=== PATIENT | male | born 1965 ===

== ENCOUNTER 2017-11-17 18:39 | Observation (INO) | payer OTHER ==
--- NOTE | 2017-11-17 20:06 | RAD ---
HISTORY: Chest pain COMPARISONS: None VIEWS: 2: frontal portable view of the chest at 7:21 PM FINDINGS: LINES AND TUBES: None. CARDIOMEDIASTINAL SILHOUETTE: The cardiomediastinal silhouette is normal for portable technique. PLEURA: The costophrenic angles are sharp. No pleural abnormalities are noted. LUNG PARENCHYMA: The lungs are clear. ABDOMEN: The upper abdomen is clear. There is no subphrenic gas. BONES AND SOFT TISSUES: No bone or soft tissue abnormalities are noted. IMPRESSION: NO ACTIVE CARDIOPULMONARY DISEASE.
[2017-11-17 20:12] LABS: ABS Basophils 0.1 10^3/ul (0-0.2); ABS Eosinophils 0.1 10^3/ul (0-0.6); ABS Lymphocytes 1.7 10^3/ul (1.0-4.8); ABS Monocytes 0.7 10^3/ul (0-0.8); ABS Neutrophils 6.9 10^3/ul (1.5-7.7); ABS Nucleated RBC 0 10^3/ul; Eosinophil % 0.9 % (0-6); Hematocrit 39 % (42-52); Hemoglobin 13.5 g/dl (14.0-18.0); Lymphocyte % 17.8 % (25-47); Mean Corpuscular HGB Conc 35 g/dl (31-36); Mean Corpuscular Hemoglobin 32 pg (27-31); Mean Corpuscular Volume 92 fL (80-94); Mean Platelet Volume 7.5 um3 (7.4-10.4); Nucleated Red Blood Cells % 0; Platelet Count 248 10^3/ul (150-450); Red Blood Count 4.24 10^6/ul (4.0-5.4); Red Cell Distribution Width 13 % (10.5-15); White Blood Count 9.3 10^3/ul (3.5-10.8)
[2017-11-17 20:22] LABS: INR 0.92 (0.77-1.02)
[2017-11-17 20:33] LABS: EGFR Non-African American 81.3 (>60)
--- NOTE | 2017-11-17 21:09 | ED ---
Malachi Danielle Nikita, scribed for Akira Sanchez MD on 11/17/17 at 1938 . HPI Chest Pain - HPI Summary HPI Summary: This patient is a 52 year old M BIBA to ED with a chief complaint of CP since 1700 today. The patient was sitting down during onset. The CC is described as radiating down the L arm with numbness/tingling down to his fingers. The patient rates the pain 3/10 in severity. Symptoms aggravated by nothing. CP and numbness/tingling alleviated slightly by 324 mg ASA and total x5 nitro tabs on arrival. Patient reports nausea and dizziness. Patient denies diaphoresis. Patient reports similar episode 1 year ago and when he had [place] in 2005 (takes Plavix and ASA, does not remember if he had an angiogram done then). Patient also had a stroke in 2016 and since then he has had L-sided weakness and a loop recorder put since 2016. Patient has syncopal episodes as well. - History of Current Complaint Chief Complaint: EDChestPainROMI Time Seen by Provider: 11/17/17 19:23 Hx Obtained From: Patient Onset/Duration: Started Hours Ago, Still Present Timing: Constant, Lasting Hours Initial Severity: Mild Current Severity: Mild Pain Intensity: 3 Pain Scale Used: 0-10 Numeric Chest Pain Radiates: Yes Chest Pain Radiates To:: Arm - L arm and down to the fingers Aggravating Factor(s): Nothing Alleviating Factor(s): Other: - CP and numbness/tingling alleviated slightly by 324 mg ASA and total x5 nitro tabs on arrival. Associated Signs and Symptoms: Positive: Other: - Patient reports nausea and dizziness. Patient denies diaphoresis. - Allergy/Home Medications Allergies/Adverse Reactions: Allergies Allergy/AdvReac Type Severity Reaction Status Date / Time ibuprofen Allergy Swelling Verified 11/17/17 18:56 Of Face,Lips,& Throat naproxen [From Naprosyn] Allergy Swelling Verified 11/17/17 18:56 Of Face,Lips,& Throat Home Medications: Home Medications Aspirin EC TAB* [Ecotrin EC Low Dose 81 MG*] 81 mg PO DAILY 11/17/17 [History Confirmed 11/17/17] Atorvastatin* [Lipitor*] 40 mg PO DAILY 11/17/17 [History Confirmed 11/17/17] Clopidogrel TAB* [Plavix TAB*] 75 mg PO DAILY 11/17/17 [History Confirmed ] Lisinopril TAB* [Prinivil TAB*] 2.5 mg PO DAILY 11/17/17 [History Confirmed 11/01] Metoprolol Tartrate TAB* [Lopressor TAB*] 12.5 mg PO BID 11/17/17 [History Confirmed 11/17/17] Triamterene/HCTZ 37.5-25 MG* [Dyazide CAP*] 1 cap PO DAILY 11/17/17 [History Confirmed 11/17/17] carBAMazepine TAB(*) [TEGretol TAB(*)] 200 mg PO BID 11/17/17 [History Confirmed 11/17/17] PMH/Surg Hx/FS Hx/Imm Hx Cardiovascular History: Reports: Hx Hypertension, Hx Myocardial Infarction Respiratory History: Reports: Hx Asthma Neurological History: Reports: Hx CVA, Hx Seizures Infectious Disease History: No Infectious Disease History: Denies: Traveled Outside the [place] in Last 30 Days - Family History Known Family History: Positive: Cardiac Disease - father - [place], Diabetes - mother , Other Family History: sister - tumor - Social History Alcohol Use: None Substance Use Type: Reports: None Smoking Status (MU): Former Smoker Review of Systems Negative: Skin Diaphoresis Positive: Chest Pain - radiates down the L arm and to the fingers Positive: Nausea Neurological: Other - dizziness, numbness/tingling in the L arm All Other Systems Reviewed And Are Negative: Yes Physical Exam - Summary Physical Exam Summary: VITAL SIGNS: Reviewed. GENERAL: ~Patient is a well-developed and nourished MALE who is lying comfortable in the stretcher. Patient is not in any acute respiratory distress. HEAD AND FACE: No signs of trauma. No ecchymosis, hematomas or skull depressions. No sinus tenderness. EYES: PERRLA, EOMI x 2, No injected conjunctiva, no nystagmus. EARS: Hearing grossly intact. Ear canals and tympanic membranes are within normal limits. MOUTH: Oropharynx within normal limits. NECK: Supple, trachea is midline, no adenopathy, no JVD, no carotid bruit, no c- spine tenderness, neck with full ROM. CHEST: Symmetric, no tenderness at palpation LUNGS: Clear to auscultation bilaterally. No wheezing or crackles. CVS: Regular rate and rhythm, S1 and S2 present, no murmurs or gallops appreciated. ABDOMEN: Soft, non-tender. Belly is distended. No rebound, no guarding, and no masses palpated. Bowel sounds are normal. EXTREMITIES: no edema, no cyanosis or clubbing. Left-sided hemiparesis and a brace on left lower extremity. NEURO: Alert and oriented x 3. No acute neurological deficits. Speech is normal and follows commands. SKIN: Dry and warm Triage Information Reviewed: Yes Vital Signs On Initial Exam: Initial Vitals Resp 23 11/17/17 18:48 Vital Signs Reviewed: Yes Diagnostics - Vital Signs Vital Signs Temp Pulse Resp BP Pulse Ox 11/17/17 19:00 65 9 96 11/17/17 18:53 98.6 F 62 13 114/65 98 11/17/17 18:48 23 - Laboratory Result Diagrams: 11/17/17 20:06 11/17/17 20:06 Lab Statement: Any lab studies that have been ordered have been reviewed, and results considered in the medical decision making process. - Radiology CXR Radiology Interpretation Completed By: Radiologist - NO ACTIVE CARDIOPULMONARY DISEASE. ED physician has reviewed this imaging report. - EKG 1845 Cardiac Rate: NL - 65 bpm EKG Rhythm: Sinus Rhythm - Normal axis. No ischemic changes. non-specific T wave changes in inferior leads. Chest Pain Course/Dx - Course Assessment/Plan: This patient is a 52 year old M BIBA to ED with a chief complaint of CP since 1700 today. CXR reveals NO ACTIVE CARDIOPULMONARY DISEASE. EKG reveals NSR at 65 bpm, Normal axis, No ischemic changes and non- specific T wave changes in inferior leads. Consulted Dr. Anderson at 2106 who accepts the patient for admission. The patient will be admitted. The patient is agreeable with this plan. - Chest Pain Differential Diagnosis/HQI/PQRI: Other: - chest pain - Diagnoses Provider Diagnoses: Chest pain - Provider Notifications Discussed Care Of Patient With: Geneva Anderson Time Discussed With Above Provider: 21:04 Instructed by Provider To: Other - Consulted Dr. Anderson who accepts the patient for admission. Discharge - Sign-Out/Discharge Documenting (check all that apply): Discharge/Admit/Transfer - Discharge Plan Condition: Stable Disposition: ADMITTED TO [facility] documentation as recorded by the Malachi irwin Nikita accurately reflects the service I personally performed and the decisions made by me, Akira Sanchez MD.
[2017-11-18] MEDS: Heparin VIAL(*) 5000 UNITS/ML VIAL (FIVE THOUSAND) SUBCUT SCH ×4 (00:15→21:22)
[2017-11-18] MEDS ORDERED: Nitroglycerin TAB 0.4 MG* 0.4 MG TAB SL PRN (02:32)
[2017-11-18] MEDS: Acetaminophen TAB* 325 MG PO PRN ×4 (02:42→23:34)
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
[2017-11-18] MEDS: Lisinopril TAB* 5 MG PO SCH (09:04)
[2017-11-18] MEDS: Clopidogrel TAB* 75 MG PO SCH (09:04)
[2017-11-18] MEDS: Triamterene/HCTZ 37.5-25 MG* CAP PO SCH (09:04)
[2017-11-18] MEDS: carBAMazepine TAB(*) 200 MG PO SCH ×2 (09:04→21:22)
[2017-11-18] MEDS: Atorvastatin* 40 MG TAB PO SCH (09:04)
[2017-11-18] MEDS: Aspirin EC TAB* 81 MG TAB.EC PO SCH (09:05)
[2017-11-18] MEDS: Metoprolol Tartrate TAB* 25 MG PO SCH ×2 (09:05→21:22)
--- NOTE | 2017-11-18 18:18 | PN ---
Subjective Date of Service: 11/18/17 Interval History: Patient was seen and examined earlier today. Reports feeling better overall. Still has intermittent mild chest discomfort, only needed one dose of Nitro last night. Denies any palpitations, weakness or SOB. Family History: Unchanged from Admission Social History: Unchanged from Admission Past Medical History: Unchanged from Admission Objective Active Medications: Acetaminophen (Tylenol Tab*) 650 mg PO Q4H PRN PRN Reason: PAIN Last Admin: 11/18/17 13:32 Dose: 650 mg Aspirin (Aspirin Ec Tab*) 81 mg PO DAILY [facility] Last Admin: 11/18/17 09:05 Dose: 81 mg Atorvastatin Calcium (Lipitor*) 40 mg PO DAILY [facility] Last Admin: 11/18/17 09:04 Dose: 40 mg Carbamazepine (Tegretol Tab(*)) 200 mg PO BID [facility] Last Admin: 11/18/17 09:04 Dose: 200 mg Clopidogrel Bisulfate (Plavix Tab*) 75 mg PO DAILY [facility] Last Admin: 11/18/17 09:04 Dose: 75 mg Heparin Sodium (Porcine) (Heparin Vial(*)) 5,000 units SUBCUT Q8HR [facility] Last Admin: 11/18/17 13:32 Dose: 5,000 units Lisinopril (Prinivil Tab*) 2.5 mg PO DAILY [facility] Last Admin: 11/18/17 09:04 Dose: 2.5 mg Metoprolol Tartrate (Lopressor Tab*) 12.5 mg PO BID [facility] Last Admin: 11/18/17 09:05 Dose: 12.5 mg Nitroglycerin (Nitroglycerin Tab 0.4 Mg*) 0.4 mg SL Q5M PRN PRN Reason: ANGINA Last Admin: 11/18/17 03:20 Dose: 0.4 mg Triamterene/HCTZ (Dyazide Cap*) 1 cap PO DAILY [facility] Last Admin: 11/18/17 09:04 Dose: 1 cap Vital Signs - 8 hr 11/18/17 11/18/17 11:45 14:56 Temperature 98.0 F 99.0 F Pulse Rate 58 65 Respiratory 16 16 Rate Blood Pressure 119/74 123/73 (mmHg) O2 Sat by Pulse 97 96 Oximetry Oxygen Devices in Use Now: Nasal Cannula Appearance: Awake and alert, laying on bed, appears comfortable and in NAD. Eyes: No Scleral Icterus, PERRLA Ears/Nose/Mouth/Throat: Clear Oropharnyx, Mucous Membranes Moist Neck: NL Appearance and Movements; NL JVP, Trachea Midline Respiratory: Symmetrical Chest Expansion and Respiratory Effort, Clear to Auscultation Cardiovascular: NL Sounds; No Murmurs; No JVD, RRR Abdominal: NL Sounds; No Tenderness; No Distention, No Hepatosplenomegaly Extremities: No Edema, No Clubbing, Cyanosis Skin: No Rash or Ulcers Neurological: Alert and Oriented x 3, NL Sensation, - - Left sided muscle weakness noted from prior CVA in 2016. No worsening deficits per patient. Nutrition: Taking PO's Result Diagrams: 11/17/17 20:06 11/17/17 20:06 Diagnostic Imaging: Patient Name: PJ JAIN Medical Record#: [id number] Ordering Physician: Akira Sanchez MD Acct.#: [id number] : 1965 Age: 52 Sex: M Location: EMERGENCY DEPARTMENT Exam Date: 11/17/171933 ADM Status: REG ER Order Information: CHEST AP PORTABLE Accession Number: [id number] CPT: 91491 HISTORY: Chest pain COMPARISONS: None VIEWS: 2: frontal portable view of the chest at 7:21 PM IMPRESSION: NO ACTIVE CARDIOPULMONARY DISEASE. EKG Data: EKG INTERPRETATION ECG Report Patient Name PJ JAIN Birthdate 1965 Sex M Order Number [id number] Date of ECG 11/18/2017 02:46:58 Interpretation Sinus rhythm.normal P axis, V-rate 60- 99 unremarkable ekg NO SIGNIFICANT CHANGES SINCE THE PREVIOUS RECORD OF 12 Lead 11/17/2017 18:45:50 Electronically signed on 11/18/2017 at 13:59 by Gurpreet Watson DO Assess/Plan/Problems-Billing Assessment: A 52 y/o male with hx [place] in 2006, hx CVA in 2016, Hx HTN, hyperlipidemia, who presented to the ED with complaints of chest pain that developed while at rest. - Patient Problems (1) Chest pain Current Visit: Yes Status: Acute Comment: - High risk for [place] given his history - Serial Troponins were negative - Telemery monitoring, rule out ACS - Continue ASA, Plavix - EKG with no significant changes noted - Inpatient for nuclear stress test on Monday (2) HTN (hypertension) Current Visit: Yes Status: Acute Comment: - Will controlled - Continue Lisniopril and Metoprolol (3) Hyperlipidemia Current Visit: No Status: Chronic Comment: - Continue Lipitor - Cholesterol checked, elevated triglycerides (4) Seizure disorder Current Visit: Yes Status: Acute Comment: - Continue Tegretol - Seizure precautions (5) DVT prophylaxis Current Visit: Yes Status: Acute Comment: - SubQ Heparin (6) Full code status Current Visit: Yes Status: Acute Comment: - He is a full code Status and Disposition: Inpatient with Telemetry monitoring, nuclear stress test on Monday, anticipate discharge when medically stable.
[2017-11-19] MEDS: Heparin VIAL(*) 5000 UNITS/ML VIAL (FIVE THOUSAND) SUBCUT SCH ×3 (05:26→20:58)
[2017-11-19] MEDS: Atorvastatin* 40 MG TAB PO SCH (08:50)
[2017-11-19] MEDS: carBAMazepine TAB(*) 200 MG PO SCH ×2 (08:50→20:57)
[2017-11-19] MEDS: Metoprolol Tartrate TAB* 25 MG PO SCH ×2 (08:50→20:57)
[2017-11-19] MEDS: Lisinopril TAB* 5 MG PO SCH (08:51)
[2017-11-19] MEDS: Triamterene/HCTZ 37.5-25 MG* CAP PO SCH (08:51)
[2017-11-19] MEDS: Aspirin EC TAB* 81 MG TAB.EC PO SCH (08:52)
[2017-11-19] MEDS: Clopidogrel TAB* 75 MG PO SCH (08:52)
--- NOTE | 2017-11-19 09:41 | PN ---
Subjective Date of Service: 11/19/17 Interval History: Patient seen and examined at bedside. Reports feeling better today. Denies chest pain, palpitations, weakness or SOB. He has no complaints today. Family History: Unchanged from Admission Social History: Unchanged from Admission Past Medical History: Unchanged from Admission Objective Active Medications: Acetaminophen (Tylenol Tab*) 650 mg PO Q4H PRN PRN Reason: PAIN Last Admin: 11/18/17 23:34 Dose: 650 mg Aspirin (Aspirin Ec Tab*) 81 mg PO DAILY [facility] Last Admin: 11/19/17 08:52 Dose: 81 mg Atorvastatin Calcium (Lipitor*) 40 mg PO DAILY [facility] Last Admin: 11/19/17 08:50 Dose: 40 mg Carbamazepine (Tegretol Tab(*)) 200 mg PO BID [facility] Last Admin: 11/19/17 08:50 Dose: 200 mg Clopidogrel Bisulfate (Plavix Tab*) 75 mg PO DAILY [facility] Last Admin: 11/19/17 08:52 Dose: 75 mg Heparin Sodium (Porcine) (Heparin Vial(*)) 5,000 units SUBCUT Q8HR [facility] Last Admin: 11/19/17 05:26 Dose: 5,000 units Lisinopril (Prinivil Tab*) 2.5 mg PO DAILY [facility] Last Admin: 11/19/17 08:51 Dose: 2.5 mg Metoprolol Tartrate (Lopressor Tab*) 12.5 mg PO BID [facility] Last Admin: 11/19/17 08:50 Dose: 12.5 mg Nitroglycerin (Nitroglycerin Tab 0.4 Mg*) 0.4 mg SL Q5M PRN PRN Reason: ANGINA Last Admin: 11/18/17 03:20 Dose: 0.4 mg Triamterene/HCTZ (Dyazide Cap*) 1 cap PO DAILY [facility] Last Admin: 11/19/17 08:51 Dose: 1 cap Vital Signs - 8 hr 11/19/17 11/19/17 03:33 07:22 Temperature 97.7 F 97.7 F Pulse Rate 63 60 Respiratory 16 16 Rate Blood Pressure 117/74 117/74 (mmHg) O2 Sat by Pulse 97 97 Oximetry Oxygen Devices in Use Now: None Appearance: Appears comfortable, watching TV and in NAD Eyes: No Scleral Icterus, PERRLA Ears/Nose/Mouth/Throat: Clear Oropharnyx, Mucous Membranes Moist Neck: Trachea Midline, No Thyroid Enlargement, Masses Respiratory: Symmetrical Chest Expansion and Respiratory Effort, Clear to Auscultation Cardiovascular: NL Sounds; No Murmurs; No JVD, RRR, - Abdominal: NL Sounds; No Tenderness; No Distention Extremities: No Edema, No Clubbing, Cyanosis Skin: No Rash or Ulcers Neurological: Alert and Oriented x 3 Nutrition: Taking PO's Result Diagrams: 11/17/17 20:06 11/17/17 20:06 Diagnostic Imaging: . EKG Data: . Assess/Plan/Problems-Billing Assessment: A 52 y/o male with hx [place] in 2005, hx CVA in 2016, Hx HTN, hyperlipidemia, who presented to the ED with complaints of chest pain that developed while at rest. - Patient Problems (1) Chest pain Current Visit: Yes Status: Acute Comment: - High risk for [place] given his history - Serial Troponins were negative - Telemery monitoring, rule out ACS - Continue ASA, Plavix - EKG with no significant changes noted - Inpatient for nuclear stress test scheduled for tomorrow (2) HTN (hypertension) Current Visit: Yes Status: Acute Comment: - Will controlled - Continue Lisniopril and Metoprolol (3) Hyperlipidemia Current Visit: No Status: Chronic Comment: - Continue Lipitor - Cholesterol checked, elevated triglycerides (4) Seizure disorder Current Visit: Yes Status: Acute Comment: - Continue Tegretol - Seizure precautions - stable (5) DVT prophylaxis Current Visit: Yes Status: Acute Comment: - SubQ Heparin (6) Full code status Current Visit: Yes Status: Acute Comment: - He is a full code Status and Disposition: Inpatient with Telemetry monitoring, nuclear stress test on Monday, anticipate discharge when medically stable.
[2017-11-19] MEDS: Acetaminophen TAB* 325 MG PO PRN (23:43)
[2017-11-20] MEDS: Heparin VIAL(*) 5000 UNITS/ML VIAL (FIVE THOUSAND) SUBCUT SCH ×2 (06:31→15:07)
[2017-11-20] MEDS: Aspirin EC TAB* 81 MG TAB.EC PO SCH (08:57)
[2017-11-20] MEDS: carBAMazepine TAB(*) 200 MG PO SCH (08:57)
[2017-11-20] MEDS: Clopidogrel TAB* 75 MG PO SCH (08:57)
[2017-11-20] MEDS: Atorvastatin* 40 MG TAB PO SCH (08:57)
[2017-11-20] MEDS: Triamterene/HCTZ 37.5-25 MG* CAP PO SCH (08:57)
[2017-11-20] MEDS ORDERED: Regadenoson* 0.4 MG/5 ML SYRINGE ONE (09:17)
[2017-11-20] MEDS ORDERED: Aminophylline IV* 25 MG/ML 10 ML VIAL ONE ×2 (09:17→09:18)
[2017-11-20] MEDS ORDERED: LORazepam INJ* 2 MG/ML 1 ML VIAL ONE (09:42)
--- NOTE | 2017-11-20 11:21 | RAD ---
Edited for charges. Indication: History of myocardial infarction Myocardial perfusion scan was performed utilizing [address] could not be performed due to stroke. Rest myocardial perfusion was performed after intravenous injection of 10.7 mCi of technetium 99m tetrofosmin. Pharmacological stress was applied and 25.9 mCi of technetium 99m tetrofosmin was injected for the stress portion of the study. There is homogeneous distribution of the radiotracer throughout the left ventricle. There is photopenia in the inferior wall which appears both on the stress and rest images and may represent diaphragmatic attenuation. Otherwise no evidence of reversible perfusion defect is identified. The ejection fraction at stress is 74%. Evaluation of wall motion demonstrates no focal wall motion abnormality. IMPRESSION: Photopenia in the inferior wall felt to represent diaphragmatic attenuation artifact. No definite fixed or reversible perfusion defect is identified. Ejection fraction is 74%. ASSESSMENT: Low risk Based on imaging criteria from ACC/AHA 2002 Guideline Update for the Management of Patients With Chronic Stable Angina Table 23. Noninvasive Risk Stratification. LOW-RISK (LESS THAN 1% ANNUAL MORTALITY RATE) - Normal or small myocardial perfusion defect at rest or with stress MTDD
[2017-11-20] MEDS: Lisinopril TAB* 5 MG PO SCH (11:55)
[2017-11-20] MEDS: Metoprolol Tartrate TAB* 25 MG PO SCH (11:55)
[2017-11-20 14:09] VITALS: BP 109/77
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
== END 2017-11-20 16:02 | disposition home or self-care (01) ==
LOC: ED 18:39 → MEDTELE 21:53 → EEVIPCON 21:53
PROVIDERS: ADMIT Hospitalist; ATTEND Internal Medicine
DX: R07.9 Chest pain, unspecified (principal); I25.10 Atherosclerotic heart disease of native coronary artery without angina pectoris; I69.354 Hemiplegia and hemiparesis following cerebral infarction affecting left non-dominant side; I10 Essential (primary) hypertension; E78.5 Hyperlipidemia, unspecified; I25.2 Old myocardial infarction; G40.909 Epilepsy, unspecified, not intractable, without status epilepticus; Z79.899 Other long term (current) drug therapy; Z79.01 Long term (current) use of anticoagulants; Z87.891 Personal history of nicotine dependence; Z88.8 Allergy status to other drugs, medicaments and biological substances
CPT/HCPCS: 36415; 71045; 78452; 80053; 80061; 83735; 83880; 84484; 85025; 85610; 85730; 93005; 93017; 96372; 99284; A9270-GY; A9502; G0378; J0280; J1644; J2060; J2785